=== PATIENT | male | born 1975 | race Caucasian/White ===

== ENCOUNTER 2020-06-24 14:21 | Inpatient (IN) | payer BC ==
[2020-06-24] MEDS ORDERED: MORPHINE SULFATE 4 MG/ML SYRINGE IV STA (15:16)
[2020-06-24] MEDS ORDERED: ONDANSETRON 4 MG/2 ML VIAL IVP STA (16:14)
[2020-06-24 16:21] LABS: Basophils # (A) 0.1 k/uL (0-0.2); Basophils % (A) 1 %; Eosinophils # (A) 0.2 k/uL (0-0.7); Eosinophils % (A) 3 %; HCT 48.9 % (39.0-53.0); HGB 16.6 gm/dL (13.0-17.5); Lymphocytes # (A) 0.9 k/uL (1.0-4.8); Lymphocytes % (A) 10 %; MCHC 33.9 g/dL (31.0-37.0); MCV 94.4 fL (80.0-100.0); Mean Platelet Volume 7.2; Monocytes # (A) 0.4 k/uL (0-1.0); Monocytes % (A) 5 %; Neutrophils % (A) 81 %; Platelet Count 223 k/uL (150-450); RBC 5.18 m/uL (4.30-5.90); WBC 8.6 k/uL (3.8-10.6)
[2020-06-24 16:25] LABS: Appearance,Urine Clear (Clear); Bilirubin,Urine Negative (Negative); Blood,Urine Negative (Negative); Color,Urine Light Yellow; Glucose,Urine (UA) Negative (Negative); Ketones,Urine Negative (Negative); Leukocyte Esterase,Urine Negative (Negative); Nitrite,Urine Negative (Negative); PH, Urine 6.5 (5.0-8.0); Protein,Urine Negative (Negative); Specific Gravity,Urine 1.009 (1.001-1.035); Urobilinogen,Urine <2.0 mg/dL (<2.0)
[2020-06-24 16:31] LABS: ALT 15 U/L (4-49); AST 25 U/L (17-59); African American GFR (CKD) >90 (>60 ml/min/1.73 sqM); Albumin 4.7 g/dL (3.5-5.0); Alkaline Phosphatase 47 U/L (38-126); Anion Gap 8 mmol/L; Blood Urea Nitrogen 13 mg/dL (9-20); Calcium 9.6 mg/dL (8.4-10.2); Carbon Dioxide 29 mmol/L (22-30); Chloride 102 mmol/L (98-107); Glucose 84 mg/dL (74-99); Non-African American GFR(CKD) >90 (>60 ml/min/1.73 sqM); Potassium 4.2 mmol/L (3.5-5.1); Sodium 139 mmol/L (137-145); Total Protein 7.7 g/dL (6.3-8.2)
[2020-06-24] MEDS ORDERED: HYDROmorphone 0.5 MG/0.5 ML SYRINGE IVP STA (17:03)
--- NOTE | 2020-06-24 17:37 | US ---
EXAMINATION TYPE: US scrotum with doppler. Grayscale and color Doppler Duplex imaging performed of francisco luis scrotum. DATE OF EXAM: 06/24/2020 COMPARISON: NONE CLINICAL HISTORY: pain . EC patient with severe scrotal pain and swelling 12 days post vasectomy with midline scrotal vasectomy incision open and draining. EXAM MEASUREMENTS: TESTICLES: Right Testicle: 4.6 x 3.1 x 3.1 cm Left Testicle: 4.6 x 2.4 x 3.1 cm EPIDIDYMIS HEAD: Right Epididymis: 2.0 x 3.5 x 2.2 cm Left Epididymis: 1.1 x 1.8 x 0.9 cm Color and PW Doppler performed to assess for testicular vascularity; good bilateral color flow and wa veforms are seen. There is no evidence of testicular torsion. Enlarged and prominent right epididymis is noted throughout especially at head and is hypervascular h ere. Prominent Left epididymis is noted mid and tail. At midline vasectomy incision: multiple lobular and connected complex fluid areas are seen from super ior right scrotal sac and coursing to midline vasectomy incision that is draining serosanguinous flui d. The complex fluid measures approximately 5.1 x 1.4 cm. Right testicular benign cyst is seen mid pole = 0.5 x 0.2 x 0.3cm. Abnormally thickened scrotal sac is noted throughout US exam. Presence of hydroceles: Small left hydrocele Presence of varicoceles: no IMPRESSION: Right greater than left enlarged epididymis with significant hyperemia on the right, concerning for e pididymitis in the appropriate clinical setting. Scrotal wall thickening with draining complex fluid along the wall and appears to be related to vasec sandeep surgical site. While findings in part may relate to postsurgical change, there is concern for campbell perimposed infected fluid. Recommend clinical correlation. No evidence of testicular torsion.
[2020-06-24] MEDS ORDERED: CLINDAMYCIN 900 MG in DEXTROSE 5% IN WATER 50 ML IVPB STA ×2 (18:28)
[2020-06-24] MEDS ORDERED: ACETAMINOPHEN TAB 325 MG TAB PO PRN (19:15)
[2020-06-24] MEDS ORDERED: NALOXONE 0.4 MG/ML 1 ML VIAL IV PRN (19:15)
--- NOTE | 2020-06-24 19:17 | ED ---
General Adult HPI - General Source: patient, RN notes reviewed, old records reviewed Mode of arrival: ambulatory Limitations: no limitations <Mc Mackenzie - Last Filed: 06/24/20 19:14> <Patricia Taylor - Last Filed: 06/25/20 13:16> - General Chief complaint: Urogenital Stated complaint: Male Time Seen by Provider: 06/24/20 14:33 - History of Present Illness Initial comments: 45-year-old male patient who is 12 days status post ostectomy presents to ED for evaluation of continued scrotal pain. Patient has poorly had pain and swelling since the surgery. He did see Dr. Moctezuma on monday. Dr. Gray did the initial procedure. He has had pain, reported purulent drainage, and some generalized myalgias, worsening the last 3 days. Patient was at [facility] 3x in the last week and was transferred to our facility today. Patient denies any dysuria, denies any other complaints. Systemic: Pt denies fatigue, fever/chills, rash. Pt denies weakness, night sweats, weight loss. Neuro: Pt denies headache, visual disturbances, syncope or pre-syncope. HEENT: Pt denies ocular discharge or irritation, otalgia, rhinorrhea, pharyngitis or notable lymphadenopathy. Cardiopulmonary: Pt denies chest pain, SOB, heart palpitations, dyspnea on exertion. Abdominal/GI: Pt denies abdominal pain, n/v/d. : Pt denies dysuria, burning w/ urination, frequency/urgency. Denies new onset urinary or bowel incontinence. MSK: Pt denies myalgia, loss of strength or function in extremities. Neuro: Pt denies new onset weakness, paresthesias. (Mc Mackenzie) - Related Data Home Medications Medication Instructions Recorded Confirmed No Known Home Medications 06/24/20 06/24/20 Allergies Allergy/AdvReac Type Severity Reaction Status Date / Time No Known Allergies Allergy Verified 06/24/20 15:32 Review of Systems ROS Other: All systems not noted in ROS Statement are negative. <Mc Mackenzie - Last Filed: 06/24/20 19:14> ROS Other: All systems not noted in ROS Statement are negative. <Patricia Taylor - Last Filed: 06/25/20 13:16> ROS Statement: Those systems with pertinent positive or pertinent negative responses have been documented in the HPI. Past Medical History Past Medical History: No Reported History History of Any Multi-Drug Resistant Organisms: None Reported Additional Past Surgical History / Comment(s): vasectomy Past Psychological History: No Psychological Hx Reported Smoking Status: Never smoker Past Alcohol Use History: Occasional Past Drug Use History: Marijuana <Mc Mackenzie - Last Filed: 06/24/20 19:14> General Exam Limitations: no limitations <Mc Mackenzie - Last Filed: 06/24/20 19:14> - General Exam Comments Initial Comments: Constitutional: NAD, AOX3, Pt has pleasant affect. HEENT: NC/AT, trachea midline, neck supple, no lymphadenopathy.External ears appear normal, without discharge. Mucous membranes moist. Eyes PERRLA, EOM intact. There is no scleral icterus. No pallor noted. Cardiopulmonary: RRR, no murmurs, rubs or gallops, no JVD noted. Lungs CTAB in anterior and posterior gallegos. No peripheral edema. Abdominal exam: Abdomen soft and non-distended. Abdomen non-tender to palpation in all 4 quadrants. Bowel sounds active in LLQ. No hepatosplenomegaly. No ecchymosis Neuro: CN II-XII grossly intact. No nuchal rigidity. No raccon eyes, no eid sign, no hemotympanum. No cervical spinal tenderness. MSK: No posterior calf tenderness bilaterally, homans sign negative bilaterally. Posterior tibialis and radial pulse +2 bilaterally. Sensation intact in upper and lower extremities. Full active ROM in upper and lower extremities, 5/5 stregnth. : Edematous scrotum, ecchymotic, tender to palpation. 1 x 1 cm lesion with drainage. (Mc Mackenzie) Course Vital Signs 06/24/20 06/24/20 14:27 19:21 Temperature 98.6 F Pulse Rate 84 76 Respiratory 16 18 Rate Blood Pressure 128/78 118/77 O2 Sat by Pulse 99 100 Oximetry Medical Decision Making - Lab Data Result diagrams: 06/24/20 16:11 06/24/20 16:11 <Mc Mackenzie - Last Filed: 06/24/20 19:14> - Lab Data Result diagrams: 06/24/20 16:11 06/24/20 16:11 <Patricia Taylor - Last Filed: 06/25/20 13:16> - Medical Decision Making 45-year-old male patient to ED with postoperative pain, swelling, drainage after mastectomy 12 days ago. Physical exam doesn't display edematous scrotum with skin lesion with some drainage. Culture was obtained. Ultrasound displays greater right than left enlarged epididymis with significant hyperemia on the right concern for epididymitis. Scrotal wall thickening with draining complex fluid along the wall. There is concern for superimposed infected fluid. No evidence of testicular torsion. Patient initiated on antibiotics clindamycin. Discussed case with Dr. Turk who will admit patient and is in agreement with plan. Case disucssed with Dr. Taylor. (Mc Mackenzie) I was available for consultation in the emergency department. The history and physical exam were done by the midlevel provider. I was consulted for this patients care. I reviewed the case with the midlevel provider and based on their presentation of the patient, I agree with the assessment, medical decision making and plan of care as documented. Chart was dictated using [employer] dictation software. Attempts were made to correct any dictation errors however some typographical errors may persist. (Patricia Taylor) - Lab Data Lab Results 06/24/20 06/24/20 06/24/20 Range/Units 16:11 16:11 16:11 WBC 8.6 (3.8-10.6) k/uL RBC 5.18 (4.30-5.90) m/uL Hgb 16.6 (13.0-17.5) gm/dL Hct 48.9 (39.0-53.0) % MCV 94.4 (80.0-100.0) fL MCH 32.0 (25.0-35.0) pg MCHC 33.9 (31.0-37.0) g/dL RDW 12.0 (11.5-15.5) % Plt Count 223 (150-450) k/uL Neutrophils % 81 % Lymphocytes % 10 % Monocytes % 5 % Eosinophils % 3 % Basophils % 1 % Neutrophils # 7.0 (1.3-7.7) k/uL Lymphocytes # 0.9 L (1.0-4.8) k/uL Monocytes # 0.4 (0-1.0) k/uL Eosinophils # 0.2 (0-0.7) k/uL Basophils # 0.1 (0-0.2) k/uL Sodium 139 (137-145) mmol/L Potassium 4.2 (3.5-5.1) mmol/L Chloride 102 (98-107) mmol/L Carbon Dioxide 29 (22-30) mmol/L Anion Gap 8 mmol/L BUN 13 (9-20) mg/dL Creatinine 0.93 (0.66-1.25) mg/dL Est GFR (CKD-EPI)AfAm >90 (>60 ml/min/1.73 sqM) Est GFR (CKD-EPI)NonAf >90 (>60 ml/min/1.73 sqM) Glucose 84 (74-99) mg/dL Plasma Lactic Acid [place] 1.3 (0.7-2.0) mmol/L Calcium 9.6 (8.4-10.2) mg/dL Total Bilirubin 1.0 (0.2-1.3) mg/dL AST 25 (17-59) U/L ALT 15 (4-49) U/L Alkaline Phosphatase 47 (38-126) U/L Total Protein 7.7 (6.3-8.2) g/dL Albumin 4.7 (3.5-5.0) g/dL Urine Color Urine Appearance (Clear) Urine pH (5.0-8.0) Ur Specific [place] (1.001-1.035) Urine Protein (Negative) Urine Glucose (UA) (Negative) Urine Ketones (Negative) Urine Blood (Negative) Urine Nitrite (Negative) Urine Bilirubin (Negative) Urine Urobilinogen (<2.0) mg/dL Ur Leukocyte Esterase (Negative) 06/24/20 Range/Units 16:11 WBC (3.8-10.6) k/uL RBC (4.30-5.90) m/uL Hgb (13.0-17.5) gm/dL Hct (39.0-53.0) % MCV (80.0-100.0) fL MCH (25.0-35.0) pg MCHC (31.0-37.0) g/dL RDW (11.5-15.5) % Plt Count (150-450) k/uL Neutrophils % % Lymphocytes % % Monocytes % % Eosinophils % % Basophils % % Neutrophils # (1.3-7.7) k/uL Lymphocytes # (1.0-4.8) k/uL Monocytes # (0-1.0) k/uL Eosinophils # (0-0.7) k/uL Basophils # (0-0.2) k/uL Sodium (137-145) mmol/L Potassium (3.5-5.1) mmol/L Chloride (98-107) mmol/L Carbon Dioxide (22-30) mmol/L Anion Gap mmol/L BUN (9-20) mg/dL Creatinine (0.66-1.25) mg/dL Est GFR (CKD-EPI)AfAm (>60 ml/min/1.73 sqM) Est GFR (CKD-EPI)NonAf (>60 ml/min/1.73 sqM) Glucose (74-99) mg/dL Plasma Lactic Acid [place] (0.7-2.0) mmol/L Calcium (8.4-10.2) mg/dL Total Bilirubin (0.2-1.3) mg/dL AST (17-59) U/L ALT (4-49) U/L Alkaline Phosphatase (38-126) U/L Total Protein (6.3-8.2) g/dL Albumin (3.5-5.0) g/dL Urine Color Light Yellow Urine Appearance Clear (Clear) Urine pH 6.5 (5.0-8.0) Ur Specific [place] 1.009 (1.001-1.035) Urine Protein Negative (Negative) Urine Glucose (UA) Negative (Negative) Urine Ketones Negative (Negative) Urine Blood Negative (Negative) Urine Nitrite Negative (Negative) Urine Bilirubin Negative (Negative) Urine Urobilinogen <2.0 (<2.0) mg/dL Ur Leukocyte Esterase Negative (Negative) Disposition Is patient prescribed a controlled substance at d/c from ED?: No <Mc Mackenzie - Last Filed: 06/24/20 19:14> <Patricia Taylor - Last Filed: 06/25/20 13:16> Clinical Impression: Scrotal pain, Scrotal abscess, Epididymitis Disposition: ADMITTED IP TO THIS HOSP Condition: Serious
[2020-06-24] MEDS: SODIUM CHLORIDE 0.9% 1,000 ML IV SCH (19:23)
[2020-06-24] MEDS: HYDROmorphone 0.5 MG/0.5 ML SYRINGE IVP PRN (20:53)
--- NOTE | 2020-06-24 23:19 | P.GSHP ---
History of Present Illness H&P Date: 06/24/20 Chief Complaint: Scrotal Abscess Mr Lira is 45 yo male presents to the ED with scrotal pain and swelling. He underwent Vasectomy by Dr Gray approximately 13 days. He Indicated that he initially noticed Bruising and swelling post procedure, but indicated that for the past few days he is been having progressive swelling, pain and noticed drainage from his incision. He indicated the pain was more severe today and decided to come to ED. He denies any fever/chills or any urinary issues. In the ED he underwent an Ultrasound of scrotum which showed greater right than left enlarged epididymis with significant hyperemia on the right concern for epididymitis. Scrotal wall thickening with draining complex fluid along the wall. There is concern for superimposed infected fluid. - Constitutional Constitutional: Denies chills, Denies fever - EENT Ears, nose, mouth and throat: Denies headache, Denies sore throat - Cardiovascular Cardiovascular: Denies chest pain, Denies shortness of breath - Respiratory Respiratory: Denies cough, Denies 7 - Gastrointestinal Gastrointestinal: Denies abdominal pain, Denies diarrhea, Denies nausea, Denies vomiting - Genitourinary (Male) Genitourinary: Reports genital pain, Reports testicular pain, Denies dysuria, Denies flank pain, Denies hematuria - Musculoskeletal Musculoskeletal: Denies myalgias - Neurological Neurological: Denies numbness, Denies weakness Past Medical History Past Medical History: No Reported History History of Any Multi-Drug Resistant Organisms: None Reported Additional Past Surgical History / Comment(s): vasectomy Past Psychological History: No Psychological Hx Reported Smoking Status: Never smoker Past Alcohol Use History: Occasional Past Drug Use History: Marijuana Medications and Allergies Home Medications Medication Instructions Recorded Confirmed Type No Known Home Medications 06/24/20 06/24/20 History Allergies Allergy/AdvReac Type Severity Reaction Status Date / Time No Known Allergies Allergy Verified 06/24/20 15:32 Surgical - Exam Vital Signs Temp Pulse Resp BP Pulse Ox 98.6 F 84 16 128/78 99 06/24/20 14:27 06/24/20 14:27 06/24/20 14:27 06/24/20 14:27 06/24/20 14:27 - General well developed, well nourished, no distress, moderate pain - Eyes PERRL, normal ocular movement - Respiratory normal expansion, normal respiratory effort - Abdomen Abdomen: soft, non tender - Genitourinary scrotal thickening and severe tenderness, Bilateral testicle tender to touch, small opening along the median raphe with fluctance and purluent drainage expressed on palpation - Psychiatric oriented to time, oriented to person, oriented to place, speech is normal Results - Labs 06/24/20 16:11 06/24/20 16:11 Abnormal Lab Results - Last 24 Hours (Table) 06/24/20 Range/Units 16:11 Lymphocytes # 0.9 L (1.0-4.8) k/uL Diabetes panel 06/24/20 Range/Units 16:11 Sodium 139 (137-145) mmol/L Potassium 4.2 (3.5-5.1) mmol/L Chloride 102 (98-107) mmol/L Carbon Dioxide 29 (22-30) mmol/L BUN 13 (9-20) mg/dL Creatinine 0.93 (0.66-1.25) mg/dL Glucose 84 (74-99) mg/dL Calcium 9.6 (8.4-10.2) mg/dL AST 25 (17-59) U/L ALT 15 (4-49) U/L Alkaline Phosphatase 47 (38-126) U/L Total Protein 7.7 (6.3-8.2) g/dL Albumin 4.7 (3.5-5.0) g/dL Calcium panel 06/24/20 Range/Units 16:11 Calcium 9.6 (8.4-10.2) mg/dL Albumin 4.7 (3.5-5.0) g/dL Pituitary panel 06/24/20 Range/Units 16:11 Sodium 139 (137-145) mmol/L Potassium 4.2 (3.5-5.1) mmol/L Chloride 102 (98-107) mmol/L Carbon Dioxide 29 (22-30) mmol/L BUN 13 (9-20) mg/dL Creatinine 0.93 (0.66-1.25) mg/dL Glucose 84 (74-99) mg/dL Calcium 9.6 (8.4-10.2) mg/dL Adrenal panel 06/24/20 Range/Units 16:11 Sodium 139 (137-145) mmol/L Potassium 4.2 (3.5-5.1) mmol/L Chloride 102 (98-107) mmol/L Carbon Dioxide 29 (22-30) mmol/L BUN 13 (9-20) mg/dL Creatinine 0.93 (0.66-1.25) mg/dL Glucose 84 (74-99) mg/dL Calcium 9.6 (8.4-10.2) mg/dL Total Bilirubin 1.0 (0.2-1.3) mg/dL AST 25 (17-59) U/L ALT 15 (4-49) U/L Alkaline Phosphatase 47 (38-126) U/L Total Protein 7.7 (6.3-8.2) g/dL Albumin 4.7 (3.5-5.0) g/dL Assessment and Plan Assessment: 45 yo male S/P Vasectomy by Dr Gray presents to the ED 13 days post procedure with scrotal cellulitis and scrotal abscess. Scrotal U/S showed bilateral epididymis. Scrotal wall thickening with draining complex fluid along the wall. fluid collection measured 5.1 X 1.4 cm. Patient didn;t tolerate bedside I&D Plan: -NPO past MN, OR tomorrow for I&D of scrotal abscess -Continue IV Abx
[2020-06-25] MEDS: CLINDAMYCIN 900 MG in DEXTROSE 5% IN WATER 50 ML IVPB SCH ×6 (00:16→15:38)
[2020-06-25] MEDS: HYDROmorphone 0.5 MG/0.5 ML SYRINGE IVP PRN ×6 (00:22→20:13)
[2020-06-25] MEDS: SODIUM CHLORIDE 0.9% 1,000 ML IV SCH ×3 (03:33→15:41)
--- NOTE | 2020-06-25 12:33 | P.PN ---
Subjective Progress Note Date: 06/25/20 Still having pain, swelling stable Objective - Vital Signs Vital signs: Vital Signs Temp 98.6 F 06/25/20 07:52 Pulse 61 06/25/20 07:52 Resp 16 06/25/20 07:52 BP 113/65 06/25/20 07:52 Pulse Ox 100 06/25/20 07:52 Intake & Output 06/24/20 06/25/20 06/25/20 18:59 06:59 18:59 Intake Total 300 Balance 300 Weight 67.132 kg 67.132 kg Intake: Oral 300 Other: Voiding Method Toilet Toilet # Voids 3 - Genitourinary Genitourinary Comment(s): scrotal swelling and tenderness, purlent drainage noticed - Labs CBC & Chem 7: 06/24/20 16:11 06/24/20 16:11 Labs: Abnormal Lab Results - Last 24 Hours (Table) 06/24/20 Range/Units 16:11 Lymphocytes # 0.9 L (1.0-4.8) k/uL Assessment and Plan Assessment: 45 yo male S/P Vasectomy by Dr Gray presents to the ED 13 days post procedure with scrotal cellulitis and scrotal abscess. Scrotal U/S showed bilateral epididymis. Scrotal wall thickening with draining complex fluid along the wall. fluid collection measured 5.1 X 1.4 cm. Patient didn;t tolerate bedside I&D Plan: OR for I&D
[2020-06-25] MEDS ORDERED: ONDANSETRON 4 MG/2 ML VIAL ONE (16:06)
[2020-06-25] MEDS ORDERED: IV FLUID CONTINUATION 1,000 ML IV ONE (16:10)
[2020-06-25] MEDS ORDERED: DEXAMETHASONE SOD PHOSPHATE 10 MG/ML 1 ML VIAL IV ONE (16:11)
[2020-06-25] MEDS ORDERED: fentaNYL (PF) 50 MCG/ML 2 ML AMP IVP ONE (16:11)
[2020-06-25] MEDS ORDERED: ONDANSETRON 4 MG/2 ML VIAL IVP ONE (16:11)
[2020-06-25] MEDS ORDERED: fentaNYL (PF) 50 MCG/ML 2 ML AMP ONE (18:10)
[2020-06-25] MEDS ORDERED: PROPOFOL 10 MG/ML 20 ML VIAL IV ONE (18:10)
[2020-06-25] MEDS ORDERED: LIDOCAINE 1% INJ 10MG/ML (20 ML MDV) ONE (18:10)
[2020-06-25] MEDS ORDERED: KETAMINE 10 MG/ML 20 ML VIAL ONE (18:10)
[2020-06-25] MEDS ORDERED: MIDAZOLAM 2 MG/2 ML VIAL ONE (18:10)
[2020-06-25] MEDS ORDERED: CEFAZOLIN 2000 MG IV ONE ×2 (18:15)
[2020-06-25] MEDS ORDERED: SODIUM CHLORIDE 0.9% IV ONE ×2 (18:15)
[2020-06-25] MEDS ORDERED: LACTATED RINGERS 1,000 ML IV ONE ×2 (18:20)
[2020-06-25] MEDS ORDERED: BUPIVACAINE (PF) 0.25% 30 ML VIAL MISCELLANE ONE (18:28)
[2020-06-25] MEDS: HYDROmorphone 1 MG/ML 1 ML SYRINGE IVP ONE ×2 (18:55→19:00)
[2020-06-25] MEDS ORDERED: KETOROLAC 15 MG/ML 1 ML VIAL IVP ONE (18:56)
--- NOTE | 2020-06-25 20:28 | P.OP ---
Date of Procedure: 06/25/20 Preoperative Diagnosis: Scrotal Abscess Postoperative Diagnosis: same Procedure(s) Performed: Incision and drainage of scrotal abscess Implants: 1 cm Pen [place] drain Anesthesia: regional, local Surgeon: Fran Turk Estimated Blood Loss (ml): 5 Pathology: other (wound culture, abscess fluid culture) Condition: stable Disposition: PACU Indications for Procedure: Mr Lira is 45 yo male that underwent Vasectomy by Dr Gray 15 days ago. He presents to the ED with scrotal abscess. I Attempted to do bedside I&D but he didn't tolerate secondary to pain. I discussed with him option of doing I&D in the OR under anesthesia. Discussed risk, benefit and alternative with him Operative Findings: 5 mL of purulent drainage drained, cavity extended along the left hemiscrotum Description of Procedure: Patient was brought to the operating room. Sedation was administered by anesthesia team. He prepped and draped in sterile fashion. local anesthetic was infiltrated. Area of fluctance along the median raphae was incised, 5 mL of purulent drainage was drained and sent for culture, some necrotic tissue were encountered in subcutaneous tissue which was debrided down and sent for wound culture. All loculation were broken down. the cavity extended along the left hemiscrotum. Counter incision was made in the left hemiscrotum along the cavity, and pen deedee was placed through the main incision and the counter incision. The pen deedee was secured using 3-0 silk. The wound was thoroughly washed with saline. the wound was tightly packed using iodoform packing. The patient was awaked from anesthesia and taken to recovery in stable condition
[2020-06-25] MEDS: ONDANSETRON 4 MG TAB PO PRN (21:04)
[2020-06-25 22:02] LABS: Glucose,Whole Blood 128 mg/dL (75-99)
[2020-06-26] MEDS: CLINDAMYCIN 900 MG in DEXTROSE 5% IN WATER 50 ML IVPB SCH ×8 (00:08→23:20)
[2020-06-26] MEDS: HYDROmorphone 0.5 MG/0.5 ML SYRINGE IVP PRN ×5 (00:08→20:38)
[2020-06-26] MEDS: SODIUM CHLORIDE 0.9% 1,000 ML IV SCH ×4 (03:35→17:32)
[2020-06-26] MEDS: ONDANSETRON 4 MG TAB PO PRN (06:46)
[2020-06-26] MEDS ORDERED: HYDROmorphone 0.5 MG/0.5 ML SYRINGE IVP STA (09:23)
--- NOTE | 2020-06-26 13:50 | P.PN ---
Subjective Progress Note Date: 06/26/20 Principal diagnosis: Scrotal abscess/cellulitis Postoperative day #1 status post scrotal I&D, there is mild improvement in the cellulitis, the wound pack was removed the wound is clean. No fevers or chills overnight Objective - Vital Signs Vital signs: Vital Signs Temp 98.3 F 06/26/20 09:26 Pulse 75 06/26/20 09:26 Resp 16 06/26/20 09:26 BP 136/72 06/26/20 09:26 Pulse Ox 100 06/26/20 09:26 Intake & Output 06/25/20 06/26/20 06/26/20 18:59 06:59 18:59 Intake Total 600 450 Output Total 3 Balance 597 450 Intake: IV 600 450 Output: Estimated Blood Loss 3 Other: Voiding Method Toilet Urinal Urinal # Voids 3 1 - Constitutional General appearance: Present: no acute distress - Genitourinary Genitourinary Comment(s): Scrotal wound clean no purulent drainage appreciated, cellulitis improved compared to yesterday but patient still having tender - Labs CBC & Chem 7: 06/24/20 16:11 06/24/20 16:11 Labs: Abnormal Lab Results - Last 24 Hours (Table) 06/25/20 Range/Units 22:00 POC Glucose (mg/dL) 128 H (75-99) mg/dL Microbiology - Last 24 Hours (Table) 06/25/20 18:38 Gram Stain - Preliminary Scrotum Tissue Culture - Preliminary 06/25/20 18:38 Gram Stain - Preliminary Other - Other Wound Culture - Preliminary 06/25/20 18:38 Anaerobic Culture - Preliminary Scrotum 06/25/20 18:38 Anaerobic Culture - Preliminary Other - Other 06/24/20 16:11 Blood Culture - Preliminary Blood No Growth after 24 hours Assessment and Plan Assessment: 45 yo male S/P Vasectomy by Dr Gray presents to the ED 15 days post procedure with scrotal cellulitis and scrotal abscess. Scrotal U/S showed bilateral epididymis. Scrotal wall thickening with draining complex fluid along the wall. fluid collection measured 5.1 X 1.4 cm. Patient didn;t tolerate bedside I&D. Postoperative day #1 status post I&D of scrotal abscess, wound clean this a.m. no purulent drainage appreciated cellulitis is improved but still quite tender on exam Plan: -CBC tonight -Continue antibiotics -If cellulitis continues to improve will plan on discharge home tomorrow
[2020-06-26 22:24] LABS: Basophils # (A) 0.1 k/uL (0-0.2); Basophils % (A) 1 %; Eosinophils # (A) 0.1 k/uL (0-0.7); Eosinophils % (A) 2 %; HCT 39.9 % (39.0-53.0); HGB 13.7 gm/dL (13.0-17.5); Lymphocytes # (A) 1.2 k/uL (1.0-4.8); Lymphocytes % (A) 23 %; MCH 31.9 pg (25.0-35.0); MCHC 34.4 g/dL (31.0-37.0); MCV 92.9 fL (80.0-100.0); Mean Platelet Volume 7.2; Monocytes # (A) 0.5 k/uL (0-1.0); Monocytes % (A) 9 %; Neutrophils # (A) 3.4 k/uL (1.3-7.7); Neutrophils % (A) 64 %; Platelet Count 240 k/uL (150-450); RBC 4.29 m/uL (4.30-5.90); RDW 11.7 % (11.5-15.5); WBC 5.3 k/uL (3.8-10.6)
[2020-06-26] MEDS: KETOROLAC 15 MG/ML 1 ML VIAL IVP SCH (23:20)
[2020-06-27] MEDS: HYDROcodone/APAP 10-325MG 1 EACH TAB PO PRN ×3 (00:07→15:22)
[2020-06-27] MEDS: ONDANSETRON 4 MG TAB PO PRN (00:08)
[2020-06-27] MEDS: SODIUM CHLORIDE 0.9% 1,000 ML IV SCH ×4 (00:09→23:32)
[2020-06-27] MEDS: KETOROLAC 15 MG/ML 1 ML VIAL IVP SCH ×4 (05:43→23:30)
[2020-06-27] MEDS: CLINDAMYCIN 900 MG in DEXTROSE 5% IN WATER 50 ML IVPB SCH ×2 (08:27)
[2020-06-27] MEDS ORDERED: VANCOMYCIN IV PER PHARMACY 1 EACH MISC MISCELLANE PRN (09:21)
[2020-06-27] MEDS ORDERED: VANCOMYCIN 1,250 MG in SODIUM CHLORIDE 0.9% 250 ML IVPB SCH (10:00)
[2020-06-27 11:19] LABS: African American GFR (CKD) >90 (>60 ml/min/1.73 sqM); Non-African American GFR(CKD) >90 (>60 ml/min/1.73 sqM)
--- NOTE | 2020-06-27 18:29 | P.PN ---
Subjective Progress Note Date: 06/27/20 Principal diagnosis: Scrotal abscess/cellulitis Postoperative day #2 status post scrotal I&D, Swelling slightly worsened compared to yesterday, the wound pack was removed the wound is clean, no additional area of fluctance. No fevers or chills overnight Objective - Vital Signs Vital signs: Vital Signs Temp 98.6 F 06/27/20 15:16 Pulse 66 06/27/20 15:16 Resp 16 06/27/20 15:16 BP 133/84 06/27/20 15:16 Pulse Ox 97 06/27/20 15:16 Intake & Output 06/26/20 06/27/20 06/27/20 18:59 06:59 18:59 Intake Total 3880 100 Balance 3880 100 Intake: Intake, IV Titration 2380 Amount Sodium Chloride 0.9% 1, 2080 000 ml @ 130 mls/hr IV . [id number] [facility] Rx#:[id number] Sodium Chloride 0.9% 200 200 ml ceFAZolin 2,000 mg @ 0 mls/hr IV .[facility] Rx#:[id number] cefTRIAXone 1 gm In 100 Sodium Chloride 0.9% 50 ml @ 100 mls/hr IVPB Q24H [facility] Rx#:[id number] Oral 1500 Other 100 Other: Voiding Method Urinal Urinal Urinal # Voids 1 2 1 - Constitutional General appearance: Present: mild distress - Genitourinary Genitourinary Comment(s): wound clean, pen deedee in place. cellulitis stable, swelling slightly worse - Psychiatric Psychiatric: Present: A&O x's 3 - Labs CBC & Chem 7: 06/26/20 22:14 06/27/20 10:26 Labs: Abnormal Lab Results - Last 24 Hours (Table) 06/26/20 Range/Units 22:14 RBC 4.29 L (4.30-5.90) m/uL Microbiology - Last 24 Hours (Table) 06/25/20 18:38 Gram Stain - Preliminary Scrotum Tissue Culture - Preliminary Methicillin resist S. aureus 06/25/20 18:38 Gram Stain - Final Other - Other Wound Culture - Final Methicillin resist S. aureus 06/24/20 16:11 Blood Culture - Preliminary Blood No Growth after 72 hours Assessment and Plan Assessment: 45 yo male S/P Vasectomy by Dr Gray presents to the ED 15 days post procedure with scrotal cellulitis and scrotal abscess. Scrotal U/S showed bilateral epididymis. Scrotal wall thickening with draining complex fluid along the wall. fluid collection measured 5.1 X 1.4 cm. Patient didn;t tolerate bedside I&D. Postoperative day #1 status post I&D of scrotal abscess, wound clean this a.m. no purulent drainage appreciated cellulitis is stable, swelling worse. Wound culture is MRSA. remain afebrile and no leucocytosis Plan: -CBC tonight -Will switch to vancomycin -If reassess tomorrow if exam improve and susceptibility is back will plan on discharging tomorrow
[2020-06-28] MEDS: VANCOMYCIN 1,250 MG in SODIUM CHLORIDE 0.9% 250 ML IVPB SCH ×2 (00:38→11:55)
[2020-06-28] MEDS: KETOROLAC 15 MG/ML 1 ML VIAL IVP SCH ×2 (05:10→11:55)
[2020-06-28 07:20] VITALS: BP 138/84; PULSE 56; RESP 16; TEMP 98.3
[2020-06-28] MEDS: SODIUM CHLORIDE 0.9% 1,000 ML IV SCH (07:34)
[2020-06-28 07:51] LABS: African American GFR (CKD) >90 (>60 ml/min/1.73 sqM); Non-African American GFR(CKD) >90 (>60 ml/min/1.73 sqM)
[2020-06-28] MEDS: HYDROcodone/APAP 10-325MG 1 EACH TAB PO PRN (10:00)
--- NOTE | 2020-06-28 13:42 | P.DS ---
Providers Date of admission: 06/26/20 13:37 Attending physician: Fran Turk MD Primary care physician: Abisai Guzmankas [facility] Course: Mr Lira is 45 yo male S/P Vasectomy by Dr Gray, he developed scrotal Abscess post procedure. He was taken to the OR June 25 for scrotal I&D, please see op note dated June 25 for surgery detail. His wound cultures came back positive for MRSA. He had slow improvement of his cellulitis, but on postop day #3 there was significant improvement in his cellulitis, additionally his tenderness has resolved. He was discharged home on postoperative day #3 with a [place] drain. He will follow-up as an outpatient for [place] removal Patient Condition at Discharge: Serious Plan - Discharge Summary Discharge Rx Participant: No New Discharge Prescriptions: New Sulfamethox-Tmp 800-160Mg [Bactrim DS 800-160 mg] 1 tab PO Q12HR 7 Days #14 tab Hydrocodone/Acetaminophen [[place] 5-325] 1 each PO Q6HR PRN #10 tab PRN Reason: Pain Ketorolac [Toradol] 10 mg PO Q6HR #15 tab No Action No Known Home Medications Discharge Medication List No Known Home Medications 06/24/20 [History] Hydrocodone/Acetaminophen [[place] 5-325] 1 each PO Q6HR PRN #10 tab 06/28/20 [Rx] Ketorolac [Toradol] 10 mg PO Q6HR #15 tab 06/28/20 [Rx] Sulfamethox-Tmp 800-160Mg [Bactrim DS 800-160 mg] 1 tab PO Q12HR 7 Days #14 tab 06/28/20 [Rx] Follow up Appointment(s)/Referral(s): Abisai Garcia MD [Primary Care Provider] - 1-2 days Discharge Disposition: HOME SELF-CARE
== END 2020-06-28 15:40 | disposition home or self-care (01) | DRG 858 ==
LOC: EC 14:21 → 1SOBS 19:41 → OBSVTOIN 06-26 13:37
PROVIDERS: ADMIT Urology; ATTEND Urology
PROC: 0V950ZZ Drainage of Scrotum, Open Approach (ICD-10-PCS; principal; 2020-06-25 18:15)
DX: T81.49XA Infection following a procedure, other surgical site, initial encounter (principal); N49.2 Inflammatory disorders of scrotum; Z98.52 Vasectomy status
CPT/HCPCS: 36415; 76870; 80053; 81003; 82565; 83605; 85025; 87040; 87070; 87075; 87077; 87186; 87205; 93975; 96365; 96375; 99285